=== PATIENT | male | born 1950 | race Caucasian/White ===

== ENCOUNTER 2023-08-23 19:20 | Inpatient (IN) | payer MEDICARE, OTHER ==
[2023-08-23 19:54] LABS: Basophils % (A) 1 %; Eosinophils # (A) 0.2 k/uL (0-0.7); Eosinophils % (A) 3 %; HCT 48.1 % (39.0-53.0); HGB 16.4 gm/dL (13.0-17.5); Lymphocytes # (A) 1.2 k/uL (1.0-4.8); Lymphocytes % (A) 20 %; MCH 30.9 pg (25.0-35.0); MCV 90.9 fL (80.0-100.0); Mean Platelet Volume 7.8; Monocytes # (A) 0.3 k/uL (0-1.0); Monocytes % (A) 5 %; Neutrophils # (A) 4.2 k/uL (1.3-7.7); Neutrophils % (A) 70 %; Platelet Count 266 k/uL (150-450); RBC 5.29 m/uL (4.30-5.90); RDW 12.1 % (11.5-15.5)
[2023-08-23 20:11] LABS: ALT 24 U/L (4-49); AST 32 U/L (17-59); African American GFR (CKD) >90 (>60 ml/min/1.73 sqM); Albumin 4.7 g/dL (3.5-5.0); Alkaline Phosphatase 96 U/L (38-126); Anion Gap 7 mmol/L; Blood Urea Nitrogen 26 mg/dL (9-20); Calcium 9.7 mg/dL (8.4-10.2); Carbon Dioxide 26 mmol/L (22-30); Chloride 106 mmol/L (98-107); Glucose 98 mg/dL (74-99); Lipase 99 U/L (23-300); Magnesium 2.1 mg/dL (1.6-2.3); Non-African American GFR(CKD) >90 (>60 ml/min/1.73 sqM); Potassium 4.1 mmol/L (3.5-5.1); Sodium 139 mmol/L (137-145); Total Bilirubin 0.5 mg/dL (0.2-1.3); Total Protein 7.7 g/dL (6.3-8.2)
[2023-08-23 20:13] LABS: INR 0.9 (<1.2); Partial Thromboplastin Time 25.7 sec (22.0-30.0); Prothrombin Time 10.5 sec (10.0-12.5)
[2023-08-23 20:20] LABS: NT-Pro-B-Type Natriuretic Pept 199 pg/mL
--- NOTE | 2023-08-23 20:25 | XR ---
EXAMINATION TYPE: XR chest 2V DATE OF EXAM: 08/23/2023 7:57 PM CLINICAL INDICATION:Male, 72 years old with history of Chest Pain; [facility] COMPARISON: Chest radiographs from TECHNIQUE: XR chest 2V Frontal and lateral views of the chest. FINDINGS: Lungs/Pleura: There is flattening of the diaphragm with increased lucency of the lungs. No evidence o f pneumothorax, pleural effusion or focal consolidation. Pulmonary vascularity: Unremarkable. Heart/mediastinum: Cardiomediastinal silhouette is unremarkable. Musculoskeletal: No acute osseous pathology. Other findings: None IMPRESSION: 1. No acute cardiopulmonary disease process. 2. COPD changes.
[2023-08-23] MEDS ORDERED: NITROGLYCERIN SL TABS 0.4 MG TAB SUBLINGUAL PRN (20:49)
[2023-08-23] MEDS ORDERED: ACETAMINOPHEN TAB 325 MG TAB PO PRN (20:49)
[2023-08-23] MEDS: HEPARIN SODIUM 1,000 UN/ML (10ML VL) IV ONE (21:09)
[2023-08-23] MEDS: HEPARIN SOD,PORK IN 0.45% NACL 25,000 UNIT in 0.45% NACL 1 250ML.BAG IV SCH ×2 (21:22→21:26)
[2023-08-23] MEDS: SODIUM CHLORIDE 0.9% 1,000 ML IV SCH (21:25)
[2023-08-23] MEDS: METOPROLOL TARTRATE 25 MG TAB PO SCH (21:28)
--- NOTE | 2023-08-23 21:39 | ED ---
Chest Pain HPI - General Chief Complaint: Chest Pain Stated Complaint: chest pains high BP Time Seen by Provider: 08/23/23 19:33 Source: patient, family, RN notes reviewed Mode of arrival: ambulatory Limitations: no limitations - History of Present Illness Initial Comments: 72-year-old male with a history of smoking no prior history of heart disease who states he has been having intermittent episodes of right-sided chest pressure with radiation to the shoulder blade area. He has not this time and has noticed over the last several days his blood pressure has been elevated. He is not on any blood pressure medications either. At one point at home he states that it was as high as 198/1 60s no headache blurry vision nausea vomiting palpitations or other symptoms. MD Complaint: chest pain, other - Related Data Home Medications Medication Instructions Recorded Confirmed Aspirin EC [Ecotrin] 325 mg PO ONCE PRN 08/23/23 08/23/23 Glucosamine/Chondr Tobin A Sod [Osteo 1 tab PO DAILY 08/23/23 08/23/23 Bi-Flex Caplet] Ibuprofen [Motrin Ib] 600 mg PO Q6H PRN 08/23/23 08/23/23 Multivitamins, Thera [Multivitamin 1 tab PO DAILY 08/23/23 08/23/23 (formulary)] Logan-3/Dha/Epa/Fish Oil [Logan-3 1 cap PO DAILY 08/23/23 08/23/23 Fish Oil 1,000 mg Sfgl] Turmeric Root Extract [Turmeric] 500 mg PO DAILY 08/23/23 08/23/23 Allergies Allergy/AdvReac Type Severity Reaction Status Date / Time No Known Allergies Allergy Verified 08/23/23 19:26 Review of Systems ROS Statement: Those systems with pertinent positive or pertinent negative responses have been documented in the HPI. ROS Other: All systems not noted in ROS Statement are negative. EKG Findings - EKG Results: EKG: interpreted by ERMFarida (Initial EKG shows sinus rhythm 86 OK interval 174 QRS ration 104 QT/QTc 363/406 borderline left axis deviation moderate ST depression nonspecific) Past Medical History Smoking Status: Never smoker Past Alcohol Use History: Heavy Past Drug Use History: None Reported General Exam - General Exam Comments Initial Comments: This is a well-developed well-nourished awake alert oriented x 4 male Limitations: no limitations General appearance: alert, in no apparent distress Head exam: Present: atraumatic, normocephalic, normal inspection Eye exam: Present: normal appearance, PERRL, EOMI. Absent: scleral icterus, conjunctival injection, periorbital swelling ENT exam: Present: normal exam, mucous membranes moist Neck exam: Present: normal inspection, full ROM, other (No stridor JVD or bruits). Absent: tenderness, meningismus, lymphadenopathy Respiratory exam: Present: normal lung sounds bilaterally. Absent: respiratory distress, wheezes, rales, rhonchi, stridor Cardiovascular Exam: Present: regular rate, normal rhythm, normal heart sounds. Absent: systolic murmur, diastolic murmur, rubs, gallop, clicks GI/Abdominal exam: Present: soft, normal bowel sounds. Absent: distended, tenderness, guarding, rebound, rigid, bruit, pulsatile mass Extremities exam: Present: normal inspection, full ROM, normal capillary refill. Absent: tenderness, pedal edema, joint swelling, calf tenderness Back exam: Present: normal inspection Neurological exam: Present: alert, oriented X3, CN II-XII intact Psychiatric exam: Present: normal affect, normal mood Skin exam: Present: warm, dry, intact, normal color. Absent: rash Course Vital Signs 08/23/23 08/23/23 08/23/23 19:23 20:12 21:23 Temperature 98.2 F Pulse Rate 87 88 89 Respiratory 18 19 19 Rate Blood Pressure 205/120 159/106 150/111 O2 Sat by Pulse 97 97 97 Oximetry - Reevaluation(s) Reevaluation #1: 08/23/23 21:32 Reevaluation patient finds no further complaints of chest pain. Chest Pain MDM - MDM I did discuss the findings with the patient and family he remains pain-free he did take 324 mg of aspirin at home prior to coming to the hospital today. He does have an elevated troponin of 0.17 2 repeat EKG showed no change from the initial 1. I did discuss the case with Dr. Johnson and Dr. Posey. Patient will be admitted placed on IV heparin Nitropaste beta-martha aspirin echocardiogram in a.m. and n.p.o. after midnight. Did discuss the results with the patient and family members. Was pt. sent in by a medical professional or institution (, PA, LUMBER INSPECTOR, urgent care, hospital, or detention...) When possible be specific @ -No Did you speak to anyone other than the patient for history (EMS, parent, family, police, friend...)? What history was obtained from this source @ -Family Did you review nursing and triage notes (agree or disagree)? Why? @ -I reviewed and agree with nursing and triage notes Were old charts reviewed (outside hosp., previous admission, EMS record, old EKG, old radiological studies, urgent care reports/EKG's, detention records)? Report findings @ -No old charts were available for reviewed Differential Diagnosis (chest pain, altered mental status, abdominal pain women, abdominal pain men, vaginal bleeding, weakness, fever, dyspnea, syncope, headache, dizziness, GI bleed, back pain, seizure, CVA, palpatations, mental health, musculoskeletal)? @ -Chest pain EKG interpreted by me (3pts min.). @ -As above first EKG that was done showed a sinus rhythm of 86 OK interval 174 QRS duration 104 QT/QTc 363/406 borderline left axis deviation with moderate ST depression nonspecific. This was interpreted by me. Repeat EKG done serially showed a sinus rhythm 86 parable 173 QRS duration 91 QT/QTc 380/423 evidence of possible left atrial enlargement borderline left axis deviation no change seen. X-rays interpreted by me (1pt min.). @ -Chest x-ray interpreted by me no definitive acute findings he does have evidence of COPD.] CT interpreted by me (1pt min.). @ -None done U/S interpreted by me (1pt. min.). @ -None done What testing was considered but not performed or refused? (CT, X-rays, U/S, labs)? Why? @ -None What meds were considered but not given or refused? Why? @ -None Did you discuss the management of the patient with other professionals (professionals i.e. Dr., PA, LUMBER INSPECTOR, lab, RT, psych nurse, social service agency director, collections associate, teacher, legal compliance officer, director of casework)? Give summary @ -Dr. Johnson and Dr. Posey Was smoking cessation discussed for >3mins.? @ -No Was critical care preformed (if so, how long)? @ -39 minutes Were there social determinants of health that impacted care today? How? (Homelessness, low income, unemployed, alcoholism, drug addiction, transportation, low edu. Level, literacy, decrease access to med. care, alf, rehab)? @ -No Was there de-escalation of care discussed even if they declined (Discuss DNR or withdrawal of care, Hospice)? DNR status @ -No What co-morbidities impacted this encounter? (DM, HTN, Smoking, COPD, CAD, Cancer, CVA, ARF, Chemo, Hep., AIDS, mental health diagnosis, sleep apnea, morbid obesity)? @ -History of smoking Was patient admitted / discharged? Hospital course, mention meds given and route, prescriptions, significant lab abnormalities, going to OR and other pertinent info. @ -Hospital course patient was admitted to this facility for cardiac evaluation Undiagnosed new problem with uncertain prognosis? @ -NSTEMI Drug Therapy requiring intensive monitoring for toxicity (Heparin, Nitro, Insulin, Cardizem)? @ -Yes heparin and nitroglycerin Were any procedures done? @ -No Diagnosis/symptom? @ -Acute chest pain, NSTEMI, hypertension Acute, or Chronic, or Acute on Chronic? @ -Acute Uncomplicated (without systemic symptoms) or Complicated (systemic symptoms)? @ -Complicated Side effects of treatment? @ -No Exacerbation, Progression, or Severe Exacerbation? @ -No Poses a threat to life or bodily function? How? (Chest pain, USA, MA, pneumonia, PE, COPD, DKA, ARF, appy, cholecystitis, CVA, Diverticulitis, Homicidal, Suicidal, threat to staff... and all critical care pts) @ -Potential, chest pain, NSTEMI Disposition Clinical Impression: Acute non-ST elevation myocardial infarction (NSTEMI), Chest pain, Hypertension, History of smoking Disposition: ADMITTED IP TO THIS HOSP Condition: Stable Referrals: Marine Blake MD [Primary Care Provider] - 1-2 days Decision Date: 08/23/23 Decision Time: 21:39
--- NOTE | 2023-08-23 21:42 | ED ---
Medical Decision Making - Lab Data Result diagrams: 08/23/23 19:45 08/23/23 19:45 Lab Results 08/23/23 08/23/23 08/23/23 Range/Units 19:45 19:45 19:45 WBC 6.0 (3.8-10.6) k/uL RBC 5.29 (4.30-5.90) m/uL Hgb 16.4 (13.0-17.5) gm/dL Hct 48.1 (39.0-53.0) % MCV 90.9 (80.0-100.0) fL MCH 30.9 (25.0-35.0) pg MCHC 34.0 (31.0-37.0) g/dL RDW 12.1 (11.5-15.5) % Plt Count 266 (150-450) k/uL MPV 7.8 Neutrophils % 70 % Lymphocytes % 20 % Monocytes % 5 % Eosinophils % 3 % Basophils % 1 % Neutrophils # 4.2 (1.3-7.7) k/uL Lymphocytes # 1.2 (1.0-4.8) k/uL Monocytes # 0.3 (0-1.0) k/uL Eosinophils # 0.2 (0-0.7) k/uL Basophils # 0.0 (0-0.2) k/uL PT 10.5 (10.0-12.5) sec INR 0.9 (<1.2) APTT 25.7 (22.0-30.0) sec D-Dimer 0.48 (<0.60) mg/L FEU Sodium 139 (137-145) mmol/L Potassium 4.1 (3.5-5.1) mmol/L Chloride 106 (98-107) mmol/L Carbon Dioxide 26 (22-30) mmol/L Anion Gap 7 mmol/L BUN 26 H (9-20) mg/dL Creatinine 0.75 (0.66-1.25) mg/dL Est GFR (CKD-EPI)AfAm >90 (>60 ml/min/1.73 sqM) Est GFR (CKD-EPI)NonAf >90 (>60 ml/min/1.73 sqM) Glucose 98 (74-99) mg/dL Calcium 9.7 (8.4-10.2) mg/dL Magnesium 2.1 (1.6-2.3) mg/dL Total Bilirubin 0.5 (0.2-1.3) mg/dL AST 32 (17-59) U/L ALT 24 (4-49) U/L Alkaline Phosphatase 96 (38-126) U/L Troponin I (0.000-0.034) ng/mL NT-Pro-B Natriuret Pep 199 pg/mL Total Protein 7.7 (6.3-8.2) g/dL Albumin 4.7 (3.5-5.0) g/dL Lipase 99 (23-300) U/L 08/23/23 Range/Units 19:45 WBC (3.8-10.6) k/uL RBC (4.30-5.90) m/uL Hgb (13.0-17.5) gm/dL Hct (39.0-53.0) % MCV (80.0-100.0) fL MCH (25.0-35.0) pg MCHC (31.0-37.0) g/dL RDW (11.5-15.5) % Plt Count (150-450) k/uL MPV Neutrophils % % Lymphocytes % % Monocytes % % Eosinophils % % Basophils % % Neutrophils # (1.3-7.7) k/uL Lymphocytes # (1.0-4.8) k/uL Monocytes # (0-1.0) k/uL Eosinophils # (0-0.7) k/uL Basophils # (0-0.2) k/uL PT (10.0-12.5) sec INR (<1.2) APTT (22.0-30.0) sec D-Dimer (<0.60) mg/L FEU Sodium (137-145) mmol/L Potassium (3.5-5.1) mmol/L Chloride (98-107) mmol/L Carbon Dioxide (22-30) mmol/L Anion Gap mmol/L BUN (9-20) mg/dL Creatinine (0.66-1.25) mg/dL Est GFR (CKD-EPI)AfAm (>60 ml/min/1.73 sqM) Est GFR (CKD-EPI)NonAf (>60 ml/min/1.73 sqM) Glucose (74-99) mg/dL Calcium (8.4-10.2) mg/dL Magnesium (1.6-2.3) mg/dL Total Bilirubin (0.2-1.3) mg/dL AST (17-59) U/L ALT (4-49) U/L Alkaline Phosphatase (38-126) U/L Troponin I 0.172 H* (0.000-0.034) ng/mL NT-Pro-B Natriuret Pep pg/mL Total Protein (6.3-8.2) g/dL Albumin (3.5-5.0) g/dL Lipase (23-300) U/L Critical Care Time Critical Care Time: Yes Total Critical Care Time: 39 Disposition Clinical Impression: Acute non-ST elevation myocardial infarction (NSTEMI), Chest pain, Hypertension, History of smoking Disposition: ADMITTED IP TO THIS HOSP Condition: Stable
[2023-08-23] MEDS ORDERED: hydrALAZINE HCL 20 MG/ML 1 ML VIAL IVP PRN (22:42)
[2023-08-24] MEDS: NITROGLYCERIN OINT 1 INCH/GM PACKET TOPICAL SCH (00:04)
[2023-08-24] MEDS: ATORVASTATIN 80 MG TAB PO SCH (04:46)
[2023-08-24] MEDS: ASPIRIN 325 MG TAB PO SCH (04:46)
[2023-08-24] MEDS ORDERED: ALPRAZolam 0.5 MG TAB PO PRN (08:01)
[2023-08-24] MEDS ORDERED: ALPRAZolam 0.25 MG TAB PO PRN (08:01)
--- NOTE | 2023-08-24 08:25 | CONS ---
CONSULTATION CHIEF COMPLAINT: Chest pain. HISTORY OF PRESENT ILLNESS: Kyree is a 73-year-old gentleman with no significant past medical history, who presented to hospital with chest pain and ruled in for myocardial infarction. The patient had an episode of chest discomfort on Friday that responded to Tums and Motrin and lives in [place], was visiting his son who is a nuclear tech at this hospital in [place] and developed precordial chest pressure, moderate to severe in intensity that was not going away and hence he came to the hospital. His EKG showed sinus rhythm with nonspecific ST-T wave changes. The first set of troponin was elevated at 0.17, second set was 0.6, and the third set was 1.9 suggestive of acute [id number] elevation AL. We treated him with IV heparin nitrates, following which his chest pain had resolved. At the time of my evaluation this morning, the patient is pain-free and hemodynamically stable. I advised the patient to undergo cardiac catheterization for further evaluation. He had been explained of risks, benefits, and alternatives understood and accepted. PAST MEDICAL HISTORY: Negative for hypertension, diabetes, dyslipidemia. MEDICATIONS: Include, 1. Aspirin. 2. Turmeric. 3. Ibuprofen. 4. [place]-3. 5. Multivitamins. ALLERGIES: No known drug allergies. FAMILY HISTORY: Significant for premature coronary artery disease in his father and his mother had valve replacement in her 70s. SOCIAL HISTORY: Significant for smoking that he quit many years ago. REVIEW OF SYSTEMS: HEENT: Unremarkable. CARDIAC: As described above. RESPIRATORY: Negative. GI: Negative. GENITOURINARY: Negative. ALLERGY/IMMUNOLOGY: Negative. SKIN: Negative. MUSCULOSKELETAL: Significant for arthritis. PSYCHOSOCIAL: Negative. DERM: Negative. CONSTITUTIONAL: Negative. Rest of the system review is not relevant. PHYSICAL EXAMINATION: GENERAL: The patient is comfortable at rest. Afebrile. VITAL SIGNS: Heart rate is 73 beats per minute, blood pressure is 160/99, respiratory rate is 18, O2 saturation is 97% on room air. NECK: There is no jugular venous distention. Carotid upstroke is normal. There is no bruit. CHEST: Reveals good air entry bilaterally. HEART: Reveals first and second heart sounds. No gallop. No murmur. ABDOMEN: Soft, nontender. EXTREMITIES: Did not reveal any edema. Peripheral pulses are felt. LABORATORY DATA: Labs show that the hemoglobin is normal at 16.4, platelet count is 266, potassium is 4.1, creatinine 0.7. Troponins are elevated. ASSESSMENT: 1. Acute non ST-segment elevation myocardial infarction. 2. Uncontrolled hypertension. PLAN: The patient will undergo cardiac catheterization this morning for further evaluation. He understands risks, benefits and alternatives. LEANA / NIECY: [id number] /
[2023-08-24] MEDS: LOSARTAN 50 MG TAB PO STA (08:36)
[2023-08-24] MEDS: SODIUM CHLORIDE 0.9% 1,000 ML in EMPTY BAG 1 BAG IV SCH ×2 (08:41→12:30)
[2023-08-24 08:42] LABS: Basophils % (A) 0 %; Eosinophils # (A) 0.1 k/uL (0-0.7); Eosinophils % (A) 1 %; HCT 43.8 % (39.0-53.0); Lymphocytes % (A) 12 %; MCH 30.9 pg (25.0-35.0); MCHC 34.3 g/dL (31.0-37.0); MCV 89.8 fL (80.0-100.0); Mean Platelet Volume 8.1; Monocytes # (A) 0.4 k/uL (0-1.0); Monocytes % (A) 5 %; Neutrophils # (A) 6.5 k/uL (1.3-7.7); Neutrophils % (A) 80 %; Platelet Count 252 k/uL (150-450); RBC 4.88 m/uL (4.30-5.90); RDW 12.4 % (11.5-15.5); WBC 8.2 k/uL (3.8-10.6)
[2023-08-24 08:58] LABS: African American GFR (CKD) >90 (>60 ml/min/1.73 sqM); Anion Gap 7 mmol/L; Blood Urea Nitrogen 19 mg/dL (9-20); Calcium 9.2 mg/dL (8.4-10.2); Carbon Dioxide 26 mmol/L (22-30); Chloride 106 mmol/L (98-107); Glucose 98 mg/dL (74-99); Non-African American GFR(CKD) >90 (>60 ml/min/1.73 sqM); Sodium 139 mmol/L (137-145)
[2023-08-24 10:02] LABS: Chol/HDL Ratio 4.13 Ratio; LDL Cholesterol,Calculated 150.9 mg/dL (0.0-131.0); VLDL Calculation 15.12 mg/dL (5.00-40.00)
[2023-08-24] MEDS: IV FLUID CONTINUATION 1,000 ML IV ONE (10:37)
[2023-08-24] MEDS ORDERED: LIDOCAINE 1% INJ 10MG/ML (20 ML MDV) ONE (10:53)
[2023-08-24] MEDS ORDERED: fentaNYL (PF) 50 MCG/ML 2 ML AMP ONE (10:54)
[2023-08-24] MEDS ORDERED: VERAPAMIL 2.5 MG/ML 2 ML AMP ONE (10:54)
[2023-08-24] MEDS: MIDAZOLAM 2 MG/2 ML VIAL IVP ONE (10:55)
[2023-08-24] MEDS: fentaNYL (PF) 50 MCG/1 ML VIAL IVP ONE (10:58)
[2023-08-24] MEDS: LIDOCAINE 1% INJ 10MG/ML (30 ML VIAL-PF) SQ ONE (11:02)
[2023-08-24] MEDS: VERAPAMIL SYRINGE (5 MG/10 ML) INTRAARTER ONE ×2 (11:04→11:06)
[2023-08-24] MEDS: HEPARIN SODIUM 1,000 UN/ML (10ML VL) IV ONE ×2 (11:12→11:32)
[2023-08-24] MEDS: TICAGRELOR 90 MG TAB PO ONE ×2 (11:17)
[2023-08-24] MEDS ORDERED: TICAGRELOR 90 MG TAB ONE (11:19)
--- NOTE | 2023-08-24 12:16 | CC ---
CARDIAC CATHETERIZATION REPORT INDICATION: Acute [id number] elevation CO. PROCEDURE NOTE: After obtaining informed consent, left heart catheterization and coronary angiogram were performed via the right radial artery using standard Patrizia catheters. The patient tolerated the procedure well without any obvious immediate complications. Total sedation time was 20 minutes. Right radial artery access was obtained using Seldinger technique. 6-Luxembourgish sheath was placed. Catheters and wires were floated into the ascending aorta under fluoroscopic guidance. The patient received verapamil and a total of 5000 units of heparin per protocol. His heparin drip was stopped around 8 o'clock this morning. FINDINGS: 1. Hemodynamics: Left ventricular end-diastolic pressure was 14 mm. There is no significant gradient across the aortic valve. 2. Left ventriculogram: Left ventriculogram was not performed. 3. Angiographic data: a.Right coronary artery: Right coronary artery is a large-dominant vessel and is free of stenosis. Left main coronary artery appears calcified, but is free of stenosis, divides into left anterior descending coronary artery and circumflex coronary artery. LAD shows a mild to moderate atherosclerotic plaque in its midportion with a 30% to 40% stenosis. Circumflex coronary artery gives off large-caliber OM branches. Second OM branch has a tight focal 80% to 90% stenosis, which is probably responsible for the patient's chest pain and a myocardial infarction. CONCLUSIONS: 80% to 90% stenosis involving the obtuse marginal branch. PLAN: Will undergo angioplasty with stent placement of the same. MMGATO / LEANAN: [id number] /
[2023-08-24] MEDS: IOPAMIDOL-370 125ML BTL INJ ONE (12:17)
[2023-08-24] MEDS ORDERED: RX INFO: IV CONTRAST WAS GIVEN 1 EACH MISC MISCELLANE PRN (12:23)
[2023-08-24] MEDS ORDERED: ZOLPIDEM 5 MG TAB PO PRN (12:23)
[2023-08-24] MEDS ORDERED: MAG HYDROX/AL HYDROX/SIMETH 30 ML CUP PO PRN (12:23)
[2023-08-24] MEDS ORDERED: ATROPINE SULFATE 0.1 MG/ML 10ML SYRINGE IV PRN (12:23)
[2023-08-24] MEDS ORDERED: NITROGLYCERIN SL TABS 0.4 MG TAB SUBLINGUAL PRN (12:23)
--- NOTE | 2023-08-24 12:31 | P.CARDCATH ---
Date of Procedure: 08/24/23 Description of Procedure: PERCUTANEOUS TRANSLUMINAL CORONARY ANGIOPLASTY CLINICAL INFORMATION: The patient is a 73-year-old male who presented with non- STEMI, underwent cardiac catheterization by Dr. Posey. He was found to have severe stenosis involving the OM 2. Recommendations were made regarding angio plasty and stenting. The procedure as well as the risks and the complications were discussed with the patient who was in full understanding and agreement. PROCEDURE: A 6 Japanese EBU 3.75 guiding catheter was introduced into the system. After cannulating the left main, a 0.014 whisper J wire was advanced across the lesion and positioned distally with the help of a super cross 45 degree. Attempt to advance a 0.014 BMW J-wire initially were unsuccessful because of the acute angle of the left main to left circumflex takeoff. After positioning there was per J-wire distally it was exchanged through the super cross to 8.014 BMW J-wire. Following that a 2.5 x 12 mm trek balloon was advanced and inflated at 8 atmosphere. Following that a 2.75 x 15 mm Xience jimmie point stent was deployed. It was dilated at 16 rashid. Subsequently a [employer] [place] eye IVUS catheter was introduced and imaging were obtained. After removing the catheter a 3.0 x 12 mm NC trek balloon was advanced and 1 inflation at 10 rashid was done. After the last inflation, after appropriate wait, the balloon and the guidewire were withdrawn back into the guiding catheter. Images were obtained and repeated. Those images reveal stable successful stenting. At that point, the guiding catheter, the balloon, and guidewire were removed. The sheath was removed. Hemostasis was obtained with deployment of a TR band. There were no immediate complications. The patient was returned to the room in stable condition. Of note, the patient received 9000 units of heparin as well as Brilinta. His ACT was followed. There was no immediate complications. He had no chest discomfort or EKG changes with the inflations. RESULTS: Successful stenting of the proximal OM 2 with reduction of stenosis from 90% to 0% with adjunctive IVUS imaging. He has evidence of distal left main disease that is nonhemodynamically significant. RECOMMENDATIONS: The patient will continue on aspirin and Brilinta without any interruption for 12-month in addition to aggressive coronary risks modifications, attempting to maintain the LDL below 70 mg/dL. The findings and recommendations were discussed with the patient and the family, they are in full understanding and agreement. Duration of sedation: 49 minutes
--- NOTE | 2023-08-24 13:12 | P.HPIM ---
History of Present Illness H&P Date: 08/24/23 History of present illness; patient 73-year-old gentleman with no significant past medical history who presents to ER because of chest pressure. Patient stated that the chest pain initially started on Friday, chest pain was intermittent, located on the right side, radiating to the shoulder blades. No aggravating or relieving factor associated with this chest pain, chest pain relieved with Motrin. Patient denies any shortness of breath at the time. There was no complaint of orthopnea or PND. There was no complaint of swelling of feet. Patient stated that the chest pain reoccurred this morning. Patient at the time was visiting his son who told him to come to the ER. Initial lab work done in the ER showed WBC 6, hemoglobin 16.4, platelet count 266, sodium 139, potassium 4.1, BUN 27, creatinine 0.75, troponin 0.172 EKG done in the ER showed heart rate of 86 , no ST segment elevation or depression seen, no T-wave inversions seen. Chest x-ray done in the ER showed no acute cardiopulmonary process Patient admitted to internal medicine service REVIEW OF SYSTEMS: CONSTITUTIONAL: No fever, no malaise, no fatigue. HEENT: No recent visual problems or hearing problems. Denied any sore throat. CARDIOVASCULAR: As mentioned above PULMONARY: As mentioned above GASTROINTESTINAL: No diarrhea, no nausea, no vomiting, no abdominal pain. NEUROLOGICAL: No headaches, no weakness, no numbness. HEMATOLOGICAL: Denies any bleeding or petechiae. GENITOURINARY: Denies any burning micturition, frequency, or urgency. MUSCULOSKELETAL/RHEUMATOLOGICAL: Denies any joint pain, swelling, or any muscle pain. ENDOCRINE: Denies any polyuria or polydipsia. The rest of the 14-point review of systems is negative. PHYSICAL EXAMINATION: GENERAL: The patient is alert and oriented x3, not in any acute distress. Well developed, well nourished. HEENT: Pupils are round and equally reacting to light. EOMI. No scleral icterus. No conjunctival pallor. Normocephalic, atraumatic. No pharyngeal erythema. No thyromegaly. CARDIOVASCULAR: S1 and S2 present. No murmurs, rubs, or gallops. PULMONARY: Chest is clear to auscultation, no wheezing or crackles. ABDOMEN: Soft, nontender, nondistended, normoactive bowel sounds. No palpable organomegaly. MUSCULOSKELETAL: No joint swelling or deformity. EXTREMITIES: No cyanosis, clubbing, or pedal edema. NEUROLOGICAL: Gross neurological examination did not reveal any focal deficits. SKIN: No rashes. Assessment and plan Non-ST elevation [place] History of tobacco addiction Monitor vital signs Monitor CBC Monitor CMP Continue telemetry monitoring Trend troponin. Ordered 2D echo Continue aspirin, Lopressor Continue pharmacy to dose heparin Cardiology consulted Labs and medication were reviewed.. Continue same treatment. Continue with symptomatic treatment. Resume home medication. Monitor labs and vitals. DVT and GI prophylaxis. Further recommendations as per clinical course of the patient Dictation was produced using [employer] dictation software. please excuse any grammatical, word or spelling errors. Past Medical History Additional Past Medical History / Comment(s): Was on statin around 3 years ago, but denies history. History of Any Multi-Drug Resistant Organisms: None Reported Past Surgical History: No Surgical Hx Reported Past Anesthesia/Blood Transfusion Reactions: Unable to Obtain Additional Past Anesthesia/Blood Transfusion Reaction / Comment(s): pt denies having either. Past Psychological History: No Psychological Hx Reported Smoking Status: Former smoker Past Alcohol Use History: Heavy Past Drug Use History: None Reported Medications and Allergies Home Medications Medication Instructions Recorded Confirmed Type Aspirin EC [Ecotrin] 325 mg PO ONCE PRN 08/23/23 08/23/23 History Glucosamine/Chondr Tobin A Sod [Osteo 1 tab PO DAILY 08/23/23 08/23/23 History Bi-Flex Caplet] Ibuprofen [Motrin Ib] 600 mg PO Q6H PRN 08/23/23 08/23/23 History Multivitamins, Thera [Multivitamin 1 tab PO DAILY 08/23/23 08/23/23 History (formulary)] Ramer-3/Dha/Epa/Fish Oil [Ramer-3 1 cap PO DAILY 08/23/23 08/23/23 History Fish Oil 1,000 mg Sfgl] Turmeric Root Extract [Turmeric] 500 mg PO DAILY 08/23/23 08/23/23 History Allergies Allergy/AdvReac Type Severity Reaction Status Date / Time No Known Allergies Allergy Verified 08/23/23 19:26 Physical Exam Vitals: Vital Signs Temp Pulse Pulse Resp BP BP Pulse Ox 08/24/23 08:10 98.3 F 69 16 147/89 96 08/24/23 04:00 98 F 73 18 161/99 97 08/24/23 00:00 71 16 167/96 96 08/23/23 22:29 173/106 08/23/23 21:43 87 18 183/100 99 08/23/23 21:23 89 19 150/111 97 08/23/23 20:12 88 19 159/106 97 08/23/23 19:23 98.2 F 87 18 205/120 97 Intake and Output 08/23/23 08/24/23 08/24/23 22:59 06:59 14:59 Intake Total 79.849 Balance 79.849 Intake: Intake, IV Titration 79.849 Amount Heparin Sod,Pork in 0.45% 79.849 NaCl 25,000 unit In 0.45 % NaCl 1 250ml.bag @ 9 UNITS/KG/HR 10.002 mls/hr IV .Q24H VIDA Rx#: [id number] Other: # Voids 2 Weight 111.13 kg Results CBC & Chem 7: 08/24/23 08:14 08/24/23 08:14 Labs: Abnormal Lab Results - Last 24 Hours (Table) 08/23/23 08/23/23 08/23/23 Range/Units 19:45 19:45 21:21 APTT (22.0-30.0) sec BUN 26 H (9-20) mg/dL Troponin I 0.172 H* 0.692 H* (0.000-0.034) ng/mL 08/23/23 08/24/23 Range/Units 23:40 04:04 APTT 35.6 H (22.0-30.0) sec BUN (9-20) mg/dL Troponin I 1.960 H* (0.000-0.034) ng/mL Thrombosis Risk Factor Assmnt - Choose All That Apply Any of the Below Risk Factors Present?: Yes Each Risk Factor Represents 2 Points: Age 61-74 years Thrombosis Risk Factor Assessment Total Risk Factor Score: 2 Thrombosis Risk Factor Assessment Level: Low Risk
[2023-08-24] MEDS: amLODIPine 10 MG TAB PO STA (17:27)
[2023-08-24] MEDS: TICAGRELOR 90 MG TAB PO SCH (20:44)
[2023-08-25 05:57] VITALS: RESP 16
[2023-08-25] MEDS ORDERED: HEPARIN SODIUM,PORCINE (1 ML) 2,500 UNIT in SODIUM CHLORIDE 0.9% 250 ML IRRIGATION PRN (07:00)
[2023-08-25] MEDS ORDERED: HEPARIN SODIUM,PORCINE 10,000 UNIT in SODIUM CHLORIDE 0.9% 1,000 ML IRRIGATION PRN (07:00)
[2023-08-25 08:10] LABS: African American GFR (CKD) >90 (>60 ml/min/1.73 sqM); Anion Gap 10 mmol/L; Blood Urea Nitrogen 17 mg/dL (9-20); Calcium 9.5 mg/dL (8.4-10.2); Carbon Dioxide 23 mmol/L (22-30); Chloride 107 mmol/L (98-107); Glucose 92 mg/dL (74-99); Non-African American GFR(CKD) >90 (>60 ml/min/1.73 sqM); Potassium 4.4 mmol/L (3.5-5.1); Sodium 140 mmol/L (137-145)
[2023-08-25] MEDS: ASPIRIN 81 MG PO SCH (08:17)
[2023-08-25] MEDS: LOSARTAN 50 MG TAB PO SCH (10:52)
[2023-08-25 11:15] VITALS: BP 132/86; PULSE 62; TEMP 97.7
[2023-08-25 11:45] VITALS: BMI 32.3
--- NOTE | 2023-08-25 11:53 | CA ---
Transthoracic Echo Report Name: Carroll Ramirez Age: 73 Gender: M : 1950 Exam Date: 08/25/2023 09:18 Exam Location: [facility] Ht (in): 73 Wt (lb): 245 Ordering Physician: Terrance Ram MD Attending/Referring Phys: Economic Adviser Emiliana Razo RDCS Procedure CPT: Indications: nstemi Cardiac Hx: stent Technical Quality: Fair Contrast 1: Total Dose (mL): Contrast 2: Total Dose (mL): MEASUREMENTS (Male / Female) Normal Values 2D ECHO LV Diastolic Diameter PLAX 5.7 cm 4.2 - 5.9 / 3.9 - 5.3 cm LV Systolic Diameter PLAX 3.7 cm IVS Diastolic Thickness 1.1 cm 0.6 - 1.0 / 0.6 - 0.9 cm LVPW Diastolic Thickness 1.1 cm 0.6 - 1.0 / 0.6 - 0.9 cm LV Relative Wall Thickness 0.4 RV Internal Dim ED PLAX 3.4 cm LA Systolic Diameter LX 3.9 cm 3.0 - 4.0 / 2.7 - 3.8 cm LV Diastolic Volume MOD 4C 130.2 cm??? LV Systolic Volume MOD 4C 59.7 cm??? LV Ejection Fraction MOD 4C 54.1 % LV Cardiac Index MOD 4C 1977.6 cm???/min???m??? LV Diastolic Length 4C 8.5 cm LV Systolic Length 4C 7.4 cm LV Diastolic Volume MOD 2C 143.0 cm??? LV Systolic Volume MOD 2C 66.7 cm??? LV Ejection Fraction MOD 2C 53.3 % LV Cardiac Index MOD 2C 2141.0 cm???/min???m??? LV Diastolic Length 2C 9.3 cm LV Systolic Length 2C 7.2 cm LA Volume 77.3 cm??? 18 - 58 / 22 - 52 cm??? LA Volume Index 31.9 cm???/m??? 16 - 28 cm???/m??? M-MODE Aortic Root Diameter MM 3.6 cm MV E Point Septal Separation 0.8 cm AV Cusp Separation MM 2.4 cm DOPPLER AV Peak Velocity 164.6 cm/s AV Peak Gradient 10.8 mmHg AV Mean Velocity 117.3 cm/s AV Mean Gradient 6.0 mmHg AV Velocity Time Integral 33.5 cm MV Area PHT 4.0 cm??? Mitral E Point Velocity 80.0 cm/s Mitral A Point Velocity 96.6 cm/s Mitral E to A Ratio 0.8 MV Deceleration Time 189.4 ms MV E' Velocity 6.2 cm/s Mitral E to MV E' Ratio 12.9 TR Peak Velocity 226.7 cm/s TR Peak Gradient 20.6 mmHg Right Ventricular Systolic Press 25.6 mmHg FINDINGS Left Ventricle Left ventricular ejection fraction is estimated at 55-60 %. Left ventricular cavity size normal. Left ventricular wall thickness normal.Normal left ventricular systolic function with no obvious regional wall motion abnormalities. Right Ventricle Mild right ventricular dilatation. Right ventricular systolic pressure within normal limits. Right Atrium Normal right atrial size. Left Atrium Mildly increased left atrial volume. Mitral Valve Structurally normal mitral valve. No mitral stenosis, or prolapse.trace to mild mitral regurgitation. Aortic Valve Trileaflet aortic valve. Thickened aortic valve without stenosis.aortic valve sclerosis. Tricuspid Valve Structurally normal tricuspid valve. Trace to mild tricuspid regurgitation. Pulmonic Valve Structurally normal pulmonic valve. Trace pulmonic regurgitation. Pericardium No pericardial effusion. Aorta Normal size aortic root and proximal ascending aorta. CONCLUSIONS 1. Normal left ventricular size and systolic function 2. Trace to mild mitral and tricuspid regurgitation Previewed by: Dr. Rebekah Mark MD (Electronically Signed) Final Date: 25 August 2023 11:53
--- NOTE | 2023-08-25 12:05 | P.PN ---
Subjective HISTORY OF PRESENT ILLNESS: This is a 73-year-old male who was admitted to the hospital secondary to non- STEMI. Patient underwent cardiac catheterization yesterday with Dr. Posey. He subsequently underwent stenting of the proximal OM [address] Mark. Patient examined this morning at the bedside. Patient's daughter is present. Patient denies any further episodes of chest pain or pressure. He denies any shortness of breath. Telemetry reveals sinus mechanism. Blood pressure 132/86. Echocardiogram completed revealing ejection fraction 55 to 60%, no obvious regional wall motion abnormalities, trace to mild MR and TR. PHYSICAL EXAM: VITAL SIGNS: Reviewed. GENERAL: Well-developed in no acute distress. NECK: Supple. No JVD or thyromegaly LUNGS: Respirations even and unlabored. Lungs essentially clear to auscultation bilaterally. HEART: Regular rate and rhythm. S1 and S2 heard. EXTREMITIES: Normal range of motion. No clubbing or cyanosis. Peripheral pulses intact. No lower extremity edema ASSESSMENT: Non-STEMI, status postcardiac catheterization with stenting of the proximal OM2 Hypertension Hyperlipidemia, LDL 150 PLAN: Continue dual antiplatelet therapy with aspirin and Brilinta Continue high intensity statin Add losartan 50 mg daily Continue additional cardiac medications Patient may be discharged home this afternoon from a cardiac standpoint Nurse practitioner note has been reviewed by physician. Signing provider agrees with the documented findings, assessment, and plan of care documented by PLASTER MACHINE OPERATOR as a scribe. Objective - Vital Signs Vital signs: Vital Signs Temp 97.7 F 08/25/23 10:49 Pulse 62 08/25/23 10:49 Resp 16 08/25/23 10:49 BP 132/86 08/25/23 10:49 Pulse Ox 98 08/25/23 10:49 FiO2 Intake & Output 08/24/23 08/25/23 08/25/23 18:59 06:59 18:59 Intake Total 440 358 Balance 440 358 Weight 111.13 kg Intake: IV 200 Oral 240 358 Other: # Voids 1 1 1 # Bowel Movements 1 - Labs CBC & Chem 7: 08/24/23 08:14 08/25/23 06:46
--- NOTE | 2023-08-25 13:02 | P.DS ---
Providers Date of admission: 08/23/23 20:49 Expected date of discharge: 08/25/23 Attending physician: Ann Johnson MD Consults: 08/23/23 20:49 Consult Physician Urgent Consulting Provider: Wm Posey Consult Reason/Comments: NSTEMI Do you want consulting provider notified?: Already Contacted 08/24/23 12:23 Consult Physician Routine Consulting Provider: [facility] Consult Reason/Comments: Post Interventional Patient Do you want consulting provider notified?: Already Contacted Primary care physician: Marine Blake MD Hospital Course: Discharge diagnoses; Non-ST elevation [place] History of tobacco addiction Hospital course; patient 73-year-old gentleman with no significant past medical history who presents to ER because of chest pressure. Patient stated that the chest pain initially started on Friday, chest pain was intermittent, located on the right side, radiating to the shoulder blades. No aggravating or relieving factor associated with this chest pain, chest pain relieved with Motrin. Patient denies any shortness of breath at the time. There was no complaint of orthopnea or PND. There was no complaint of swelling of feet. Patient stated that the chest pain reoccurred this morning. Patient at the time was visiting his son who told him to come to the ER. Initial lab work done in the ER showed WBC 6, hemoglobin 16.4, platelet count 266, sodium 139, potassium 4.1, BUN 27, creatinine 0.75, troponin 0.172 EKG done in the ER showed heart rate of 86 , no ST segment elevation or depression seen, no T-wave inversions seen. Chest x-ray done in the ER showed no acute cardiopulmonary process Patient admitted to internal medicine service 08/25. Patient seen and examined. Patient underwent cardiac catheterization yesterday with stenting of the proximal OM 2 . Echocardiogram completed revealing ejection fraction 55 to 60%, no obvious regional wall motion abnormalities, trace to mild MR and TR. being discharged on aspirin, Brilinta, Lopressor, losartan. Outpatient follow-up with cardiology PHYSICAL EXAMINATION: GENERAL: The patient is alert and oriented x3, not in any acute distress. Well developed, well nourished. HEENT: Pupils are round and equally reacting to light. EOMI. No scleral icterus. No conjunctival pallor. Normocephalic, atraumatic. No pharyngeal erythema. No thyromegaly. CARDIOVASCULAR: S1 and S2 present. No murmurs, rubs, or gallops. PULMONARY: Chest is clear to auscultation, no wheezing or crackles. ABDOMEN: Soft, nontender, nondistended, normoactive bowel sounds. No palpable organomegaly. MUSCULOSKELETAL: No joint swelling or deformity. EXTREMITIES: No cyanosis, clubbing, or pedal edema. NEUROLOGICAL: Gross neurological examination did not reveal any focal deficits. SKIN: No rashes. Dictation was produced using [employer] dictation software. please excuse any grammatical, word or spelling errors. Patient Condition at Discharge: Stable Plan - Discharge Summary Discharge Rx Participant: No New Discharge Prescriptions: New Atorvastatin [Lipitor] 80 mg PO DAILY 30 Days #30 tab Nitroglycerin Sl Tabs [Nitrostat] 0.4 mg SUBLINGUAL Q5M PRN #30 tab PRN Reason: Chest Pain Aspirin 81 mg PO DAILY 30 Days #30 tab Ticagrelor [Brilinta] 90 mg PO BID 30 Days #60 tab Losartan [Cozaar] 50 mg PO DAILY #30 tab Metoprolol Tartrate [Lopressor] 25 mg PO BID #60 tab Continue Glucosamine/Chondr Tobin A Sod [Osteo Bi-Flex Caplet] 1 tab PO DAILY Turmeric Root Extract [Turmeric] 500 mg PO DAILY Childress-3/Dha/Epa/Fish Oil [Childress-3 Fish Oil 1,000 mg Sfgl] 1 cap PO DAILY Multivitamins, Thera [Multivitamin (formulary)] 1 tab PO DAILY Discontinued Aspirin EC [Ecotrin] 325 mg PO ONCE PRN PRN Reason: Chest Pain Ibuprofen [Motrin Ib] 600 mg PO Q6H PRN PRN Reason: Pain Or Fever > 100.5 Discharge Medication List Glucosamine/Chondr Tobin A Sod [Osteo Bi-Flex Caplet] 1 tab PO DAILY 08/23/23 [History] Multivitamins, Thera [Multivitamin (formulary)] 1 tab PO DAILY 08/23/23 [History] Childress-3/Dha/Epa/Fish Oil [Childress-3 Fish Oil 1,000 mg Sfgl] 1 cap PO DAILY 08/23/23 [History] Turmeric Root Extract [Turmeric] 500 mg PO DAILY 08/23/23 [History] Aspirin 81 mg PO DAILY 30 Days #30 tab 08/25/23 [Rx] Atorvastatin [Lipitor] 80 mg PO DAILY 30 Days #30 tab 08/25/23 [Rx] Losartan [Cozaar] 50 mg PO DAILY #30 tab 08/25/23 [Rx] Metoprolol Tartrate [Lopressor] 25 mg PO BID #60 tab 08/25/23 [Rx] Nitroglycerin Sl Tabs [Nitrostat] 0.4 mg SUBLINGUAL Q5M PRN #30 tab 08/25/23 [Rx] Ticagrelor [Brilinta] 90 mg PO BID 30 Days #60 tab 08/25/23 [Rx] Follow up Appointment(s)/Referral(s): Marine Blake MD [Primary Care Provider] - 1-2 days Discharge Disposition: HOME SELF-CARE
== END 2023-08-25 16:16 | disposition home or self-care (01) | DRG 322 ==
LOC: EC 19:20 → 3SCARD 20:49
PROVIDERS: ADMIT Internal Medicine; ATTEND Internal Medicine
PROC: B240ZZ3 Ultrasonography of Single Coronary Artery, Intravascular (ICD-10-PCS; 2023-08-24)
PROC: 027034Z Dilation of Coronary Artery, One Artery with Drug-eluting Intraluminal Device, Percutaneous Approach (ICD-10-PCS; principal; 2023-08-24 11:00)
PROC: 4A023N7 Measurement of Cardiac Sampling and Pressure, Left Heart, Percutaneous Approach (ICD-10-PCS; 2023-08-24 11:00)
PROC: B2111ZZ Fluoroscopy of Multiple Coronary Arteries using Low Osmolar Contrast (ICD-10-PCS; 2023-08-24 11:00)
DX: I21.4 Non-ST elevation (NSTEMI) myocardial infarction (principal); I10 Essential (primary) hypertension; E78.5 Hyperlipidemia, unspecified; I25.119 Atherosclerotic heart disease of native coronary artery with unspecified angina pectoris; Z87.891 Personal history of nicotine dependence; Z82.49 Family history of ischemic heart disease and other diseases of the circulatory system
CPT/HCPCS: 36415; 71046; 80048; 80053; 80061; 83690; 83735; 83880; 84484; 85025; 85379; 85610; 85730; 92978; 93005; 93306; 93458; 96374; 99291